=== PATIENT | female | born 1950 | race American Indian/Alaskan Native ===

== ENCOUNTER → 2017-03-04 | Emergency (ER) | payer SELFPAY ==
[2017-03-04 16:59] VITALS: BP 126/80; PULSE 66; TEMP 97.6; BMI 31.0
--- NOTE | 2017-03-04 17:57 | PDOC ---
History of Present Illness - General Chief Complaint: Shortness of Breath Stated Complaint: STOMACH PAIN/ LEFT SIDE PAIN Time Seen by Provider: 03/04/17 17:55 History Source: Patient, Family Exam Limitations: Language Barrier - History of Present Illness Initial Comments: 03/04/17 19:15 66F from [facility] presents with acute on chronic back pain radiating to her left foot, worse for the past 5 days, with some mild, intermittent shortness of breath and left leg swelling for the past 5 years. She recently flew from [facility] 2 weeks ago. No nausea, vomiting, headache, diarrhea. Painful ambulation. Patient's son demands MRI, says that's the reason he brought his mom here. Talked to Dr. Mayen and he then agreed to work up. Past History - Past Medical History Allergies/Adverse Reactions: Allergies Allergy/AdvReac Type Severity Reaction Status Date / Time No Known Allergies Allergy Verified 03/04/17 16:52 HTN: Yes - Psycho/Social/Smoking Cessation Hx Anxiety: No Suicidal Ideation: No Smoking History: Never smoked Have you smoked in the past 12 months: No Information on smoking cessation initiated: No Hx Alcohol Use: No Drug/Substance Use Hx: No Substance Use Type: None Review of Systems - Review of Systems Constitutional: No: Symptoms Reported HEENTM: No: Symptoms Reported Respiratory: No: Symptoms reported ABD/GI: No: Symptoms Reported : No: Symptoms Reported Musculoskeletal: Yes: See HPI Integumentary: No: Symptoms Reported Neurological: No: Symptoms reported *Physical Exam - Vital Signs Last Vital Signs Temp Pulse Resp BP Pulse Ox 97.6 F 66 18 126/80 96 03/04/17 16:54 03/04/17 16:54 03/04/17 16:54 03/04/17 16:54 03/04/17 16:54 - Physical Exam General Appearance: Yes: Nourished, Appropriately Dressed. No: Apparent Distress HEENT: positive: EOMI, KAM Neck: negative: Tender Respiratory/Chest: positive: Lungs Clear, Normal Breath Sounds. negative: Chest Tender Cardiovascular: positive: Regular Rhythm, Regular Rate, S1, S2 Vascular Pulses: Dorsalis-Pedis (R): 2+, Doralis-Pedis (L): 2+ Gastrointestinal/Abdominal: positive: Normal Bowel Sounds, Soft, Distended. negative: Tender Musculoskeletal: positive: CVA Tenderness (L), Muscle Spasm (Negative leg raise bilaterally but Left leg calf pain unpon dorsiflexion and left back pain around T12-L1) Extremity: positive: Normal Capillary Refill ED Treatment Course - LABORATORY CBC & Chemistry Diagram: 03/04/17 19:14 03/04/17 19:14 Medical Decision Making - Medical Decision Making 03/04/17 20:30 66F with acute on chronic back pain with associated sciatica-like radiculopathy along dorsal left leg down to ankle as well as left calf pain on dorsiflexion. DVT vs L1 sciatica Patient Eloped. 03/04/17 20:55 03/05/17 14:42 *DC/Admit/Observation/Transfer Diagnosis at time of Disposition: Sciatica - Discharge Dispostion Disposition: ELOPED
[2017-03-04 19:31] LABS: BASOPHIL 0.3 % (0-2.0); EOSINOPHIL 3.1 % (0-4.5); MCH 29.2 pg (25.7-33.7); MCHC 32.5 g/dl (32.0-36.0); MEAN CELL VOLUME 89.7 fl (80-96); NEUTROPHILS 58.6 % (42.8-82.8); PLATELET COUNT 168 K/MM3 (134-434); WHITE BLOOD COUNT 6.8 K/mm3 (4.0-10.0)
[2017-03-04 19:54] LABS: URINE APPEARANCE CLOUDY; URINE BILIRUBIN NEGATIVE (NEGATIVE); URINE BLOOD NEGATIVE (NEGATIVE); URINE COLOR YELLOW; URINE GLUCOSE (UA) NEGATIVE (NEGATIVE); URINE KETONE NEGATIVE (NEGATIVE); URINE LEUK ESTERASE TRACE (NEGATIVE); URINE NITRITE NEGATIVE (NEGATIVE); URINE PROTEIN NEGATIVE (NEGATIVE); URINE UROBILINOGEN NEGATIVE mg/dL (0.2-1.0)
[2017-03-04 20:45] LABS: URINE MUCUS RARE; URINE RBC 1 /hpf (0-3); URINE WBC 5 /hpf (3-5)
--- NOTE | 2017-03-05 01:29 | PDOC ---
Attending Attestation - Resident Resident Name: Roberto Overton - ED Attending Attestation I have performed the following: I have examined & evaluated the patient, The case was reviewed & discussed with the resident, I agree w/resident's findings & plan, Exceptions are as noted - HPI HPI: 03/05/17 01:24 patient seen and evaluated by me upon arrival. This H and P is being recorded post elopement. 66-year-old Amharic speaking female recently returned from [facility] presents to the ER accompanied by her son with multiple complains including mild shortness of breath with a nonproductive cough, periumbilical burning and worsening left sided lower back pain with radiation to the left leg. Patient's cough is mild, is not associated with fever or chills, without chest pain/nausea vomiting or diarrhea. Patient denies lower extremity weakness/bowel or bladder dysfunction. Patient's son insist on an MRI of the patient's lower back and does not wish any additional complaints to be evaluated. - Physicial Exam PE: 03/05/17 01:27 Patient is awake and alert, resting comfortably, hemodynamically stable, afebrile. HEENT-within normal limits; Lungs are clear; RRR; Abdomen is soft and nontender, nondistended, bowel sounds are normal. Back: No midline deformity; there is point tenderness at T12/L1 along the midline; there is paraspinal tenderness along the distal thoracic and proximal lumbar areas on the left; Pelvis stable; straight leg raise is positive on the left; there is mild lower extremity edema bilaterally. Patient is neurovascularly intact distally. - Medical Decision Making 03/05/17 01:28 Patient is a 66-year-old female who presents to the ER with multiple complaints. EKG shows no evidence of acute ischemia. Chest x-ray reveals a questionable anterior fat pad there is no evidence of an obvious infiltrate or effusion or cardiomegaly. Lumbosacral x-ray reveals no evidence of fracture dislocation, spondylolisthesis of L3 on L4 is noted. There is no evidence of compression fractures. Lower extremity Doppler ultrasound shows no evidence of DVT. Patient eloped prior to discharge.
--- NOTE | 2017-03-05 16:41 | EKG ---
Test Reason : Blood Pressure : / mmHG Vent. Rate : 057 BPM Atrial Rate : 057 BPM P-R Int : 176 ms QRS Dur : 088 ms QT Int : 440 ms P-R-T Axes : 028 006 024 degrees QTc Int : 428 ms SINUS BRADYCARDIA OTHERWISE NORMAL ECG NO PREVIOUS ECGS AVAILABLE Confirmed by CHARLY ELI MD ([id number]) on 03/05/2017 4:41:14 PM Referred By: Confirmed By:CHARLY ELI MD
== END | disposition left against medical advice (07) ==
LOC: JER 16:46
CPT/HCPCS: 36415; 71020-TC; 72100-TC; 81003; 81015; 85025; 93005; 93010; 93971-TC; 99282-25

== ENCOUNTER 2017-03-06 13:10 | Emergency (ER) | payer SELFPAY ==
[2017-03-06 13:26] VITALS: BP 142/78; PULSE 72; TEMP 98; BMI 31.0
--- NOTE | 2017-03-06 14:52 | PDOC ---
History of Present Illness - General Chief Complaint: Pain Stated Complaint: REVISIT/ SHOULDER PAIN Time Seen by Provider: 03/06/17 14:07 - History of Present Illness Initial Comments: 03/06/17 14:46 Pt's son acted as supervisor [employer]. HPI: 66F w/ hx of HTN recently moved from [facility] presenting with back pain radiating along left side and leg swelling. Pt reports several years of lower back pain along left side, 7/10, which radiates up and down left side, is electric, causing numbness, mildly improved with advil, heating pads and ice packs, and worsened by sitting, flexion of spine and hyperextension of spine. Pt also reports leg swelling for several years. Pt presented to the ED several days ago with the same problems, but eloped because the patient's son was "unhappy with the care he received." 03/06/17 14:52 03/06/17 14:58 Past History - Past Medical History Allergies/Adverse Reactions: Allergies Allergy/AdvReac Type Severity Reaction Status Date / Time No Known Allergies Allergy Verified 03/06/17 13:19 Home Medications: Ambulatory Orders Naproxen [Naprosyn -] 250 mg PO Q6H PRN #24 tablet 03/06/17 HTN: Yes Comment:: 03/06/17 14:54 PMH: HTN PSH: none Meds: valsartan Allergies: NKDA Fam Hx: none Social Hx: denies toxic habits - Psycho/Social/Smoking Cessation Hx Anxiety: No Suicidal Ideation: No Smoking History: Never smoked Have you smoked in the past 12 months: No Information on smoking cessation initiated: No Hx Alcohol Use: No Drug/Substance Use Hx: No Substance Use Type: None Review of Systems - Review of Systems Comments:: 03/06/17 14:55 GENERAL: No fever, chills, night sweats, or weakness. HEAD, EYES, EARS, NOSE AND THROAT: No change in vision, ear pain, or sore throat CARDIOVASCULAR: No chest pain or palpitations RESPIRATORY: No cough, wheezing, or hemoptysis. GASTROINTESTINAL: No nausea, vomiting, diarrhea, constipation, or blood in the stool. GENITOURINARY: + dysuria, + frequency MUSCULOSKELETAL: +back pain SKIN: No rashes or pruritis ENDOCRINE: No increased thirst. No abnormal weight change NEUROLOGIC: No headache, dizziness, loss of consciousness, or change in strength /sensation. *Physical Exam - Vital Signs Last Vital Signs Temp Pulse Resp BP Pulse Ox 98.0 F 72 18 142/78 100 03/06/17 13:20 03/06/17 13:20 03/06/17 13:20 03/06/17 13:20 03/06/17 13:20 - Physical Exam Comments: 03/06/17 14:55 GENERAL: Awake, alert, and fully oriented, in no acute distress HEAD: normocephalic, atraumatic HEENT: PERRLA, EOMI, NECK: Normal ROM, supple, no lymphadenopathy, JVD, or masses HEART: Regular rate and rhythm, normal S1 and S2, no murmurs, rubs or gallops, peripheral pulses normal and equal bilaterally. LUNGS: CTAB, no wheezing, no rales ABDOMEN: Soft, nontender, nondistended, normoactive bowel sounds. No guarding, no rebound. No masses Back: +CVA tenderness on L side, tender to palpation along lumbar vertebrae, no crepitus, + supine straight leg raise test on L side on flexion to 60 degrees EXTREMITIES: b/l 2+ pitting edema, no rashes SKIN: Warm, dry, no rashes or lesions noted. NEUROLOGICAL: Cranial nerves II through XII grossly intact. Normal speech, normal gait, no focal sensorimotor deficits ED Treatment Course - LABORATORY CBC & Chemistry Diagram: 03/06/17 14:58 Medical Decision Making - Medical Decision Making 03/06/17 14:58 66F w/ hx of HTN recently moved from [facility] presenting with back pain radiating along left side and leg swelling. Back pain likely due to herniated disk. CMP: low albumin UA: negative 03/06/17 16:29 *DC/Admit/Observation/Transfer Diagnosis at time of Disposition: Sciatica Qualifiers: Laterality: bilateral Qualified Code(s): M54.31 - Sciatica, right side - Discharge Dispostion Admit: No - Prescriptions Prescriptions: Naproxen [Naprosyn -] 250 mg PO Q6H PRN #24 tablet PRN Reason: sciataca - Referrals Referrals: Dilma Petersen MD [Staff Physician] - - Patient Instructions Additional Instructions: Your back pain is likely sciatica. Take naproxen as directed for your pain. Your comprehensive metabolic panel shows a low albumin. Please follow up with a PMD (Dr. Petersen: [phone]) to workup your low albumin and treat your sciatica. Return to ED if you develop any concerning symptoms such as shortness of breath or chest pain. - Attestations Physician Attestion: 03/06/17 16:59 I, Dr. Theo Moreno, attest that this document has been prepared under my direction and personally reviewed by me in its entirety. I further attest, that it accurately reflects all work, treatment, procedures and medical decision -making performed by me.
[2017-03-06 15:28] LABS: ANION GAP 7 (8-16); BILIRUBIN,TOTAL 0.2 mg/dL (0.2-1.0); CALCIUM 8.1 mg/dL (8.5-10.1); CO2 27 mmol/L (21-32); CREATININE 0.7 mg/dL (0.55-1.02); GLUCOSE,RANDOM 118 mg/dL (74-106); SGOT/AST 11 U/L (15-37); SGPT/ALT 15 U/L (12-78); TOT PROT 5.7 g/dl (6.4-8.2)
[2017-03-06 15:29] LABS: ALK PHOS 92 U/L (45-117)
[2017-03-06 15:33] LABS: PH,URINE 5.5 (5.0-8.0); URINE APPEARANCE CLEAR; URINE BILIRUBIN NEGATIVE (NEGATIVE); URINE BLOOD NEGATIVE (NEGATIVE); URINE COLOR LT. YELLOW; URINE GLUCOSE (UA) NEGATIVE (NEGATIVE); URINE KETONE NEGATIVE (NEGATIVE); URINE LEUK ESTERASE NEGATIVE (NEGATIVE); URINE NITRITE NEGATIVE (NEGATIVE); URINE PROTEIN NEGATIVE (NEGATIVE); URINE UROBILINOGEN 0.2 mg/dL (0.2-1.0)
--- NOTE | 2017-03-06 15:59 | PDOC ---
Attending Attestation - Resident Resident Name: TiffanieTheo - ED Attending Attestation I have performed the following: I have examined & evaluated the patient, The case was reviewed & discussed with the resident, I agree w/resident's findings & plan, Exceptions are as noted - HPI HPI: 03/06/17 15:47 66yo F hx HTN, recently moved from [facility] (2weeks ago) p/w L back pain and b/l leg swelling x 4 years. Low back pain relieved by Advil. Pt has seen doctors in [facility] for this but not here. Pain feels like an electric sensation radiating from L lower back to LLE. Denies LE weakness, fevers, urine or stool retention or incontinence or saddle anesthesia. Reports dysuria for 2 years a/w frequency. Leg swelling also for 4 years in both legs. Atraumatic. No recent worsening. No rashes or redness in the leg. Was seen here for the same a few days ago however eloped from the emergency department as her son was unhappy with the care. At that time they had a chest x-ray that was normal, a lower extremity Doppler that was negative for DVT, and a lumbar x-ray that showed degenerative changes. Denies fevers, chills, chest pain, shortness of breath, abdominal pain, headaches, focal weakness or numbness. 03/07/17 20:32 03/07/17 20:43 - Physicial Exam PE: 03/06/17 16:00 GENERAL: Awake, alert, and fully oriented, in no acute distress HEAD: No signs of trauma EYES: PERRLA, EOMI, sclera anicteric, conjunctiva clear ENT: Auricles normal inspection, hearing grossly normal, nares patent, oropharynx clear without exudates. Moist mucosa NECK: Normal ROM, supple, no lymphadenopathy, JVD, or masses LUNGS: Breath sounds equal, clear to auscultation bilaterally. No wheezes, and no crackles HEART: Regular rate and rhythm, normal S1 and S2, no murmurs, rubs or gallops ABDOMEN: Soft, nontender, normoactive bowel sounds. No guarding, no rebound. No masses. No CVAT EXTREMITIES: Normal range of motion, no edema. No clubbing or cyanosis. No cords, erythema, or tenderness. 1+ LE edema, symmetric NEUROLOGICAL: Normal speech, cranial nerves intact, negative pronator drift, 5/ 5 strength in all 4 extremities, normal sensation to light touch in all 4 extremities, normal cerebellar exam, normal gait, normal reflexes and tone SKIN: Warm, Dry, normal turgor, no rashes or lesions noted. MSK: +L sided thoracic and lumbar paraspinal ttp, no midline spinal ttp. + straight leg test - Medical Decision Making 03/06/17 16:17 66yo F hx hypertension presents with 4 years of back pain as well as lower extremity edema. Recent ultrasound negative for DVT. Back pain likely represents sciatica, especially with positive straight leg test and paraspinal tenderness to palpation and the absence of lower extremity weakness or urine/ stool incontinence. We will obtain CMP as sample hemolyzed during patient's last visit. We'll also check a UA to evaluate for UTI. -labs -pain control -UA -referral to PMD 03/07/17 20:41 Labs with low albumin. Otherwise CMP unremarkable. I discussed the physical exam findings, ancillary test results and final diagnoses with the patient and her son in Bengali. I answered all of the patient's questions. The patient was satisfied with the care received and felt comfortable with the discharge plan and treatment plan. Pt's son is currently working on arranging insurance for the patient and has a PMD (Dr. Olivares) with whom she will follow up next week.
[2017-03-06] MEDS ORDERED: NAPROXEN 375 MG TABLET (FP) PO ONE (16:29)
== END 2017-03-06 17:10 ==
LOC: JER 13:10
CPT/HCPCS: 36415; 80053; 81003; 99282-25